=== PATIENT | male | born 1985 | race Caucasian/White ===

== ENCOUNTER 2016-05-05 19:34 | Emergency (ER) | payer SELFPAY ==
[~2016-05-05] VITALS: Ht 182.9 cm; Wt 81.4 kg
[~2016-05-05 19:34] MED LIST: ALBU0.63 NEB
[2016-05-05] MEDS ORDERED: ONDANSETRON ODT 4 MG PO ONE (20:30)
[2016-05-05] MEDS ORDERED: ONDANSETRON ODT 4 MG ONE (21:50)
[2016-05-05 21:57] VITALS: BP 110/56
== END 2016-05-05 22:12 | disposition home or self-care (01) ==
LOC: ED 22:06
DX: R11.0 Nausea (principal); T40.7X5A Adverse effect of cannabis (derivatives), initial encounter; Y92.9 Unspecified place or not applicable
CPT/HCPCS: 99282; Q0162